=== PATIENT | female | born 1985 | race Caucasian/White ===

== ENCOUNTER 2023-05-28 16:16 | Emergency (ER) | payer MEDICAID ==
[~2023-05-28] VITALS: Ht 175.3 cm; Wt 81.6 kg
[~2023-05-28 16:16] MED LIST: FERR236T3 PO; MULT-1117 PO
[2023-05-28 16:49] VITALS: BP_SYST 115; PULSE 66; RESP 17; TEMP 97.1; O2SAT 97
[2023-05-28 17:40] LABS: BARBITURATE, URINE NEGATIVE (NEG <=200); BENZODIAZEPINE, URINE NEGATIVE (NEG <=150); CANNABINOID, URINE NEGATIVE (NEG <=50); COCAINE, URINE NEGATIVE (NEG <=150); METHAMPHETAMINES SCREEN,URINE NEGATIVE (NEG <=500); OPIATE, URINE NEGATIVE (NEG <=100); PHENCYCLIDINE SCREEN,URINE NEGATIVE (NEG <=25); URINE AMPHETAMINE NEGATIVE (NEG <=500); URINE METHADONE NEGATIVE (NEG <=200); URINE OXYCODONE SCREEN NEGATIVE (NEG <=100)
[2023-05-28 17:41] LABS: UR TRICYCLIC ANTIDEPRESSANTS NEGATIVE (NEG <=300)
[2023-05-28 17:44] LABS: BASOPHILS # (AUTO) 0.1 K/uL (0.0-0.2); BASOPHILS % (AUTO) 1.6 % (0.0-2.0); EOSINOPHILS # (AUTO) 0.2 K/uL (0.0-0.4); EOSINOPHILS % (AUTO) 3.2 % (0.0-4.0); HEMATOCRIT 31.2 % (36-48); HEMOGLOBIN 9.8 g/dL (12.0-16.0); LYMPHOCYTES # (AUTO) 2.1 K/uL (1.0-5.5); LYMPHOCYTES % (AUTO) 31.3 % (20.5-51.5); MEAN CORPUSCULAR HEMOGLOBIN 21 pg (27-31); MEAN CORPUSCULAR HGB CONC 31 % (32-36); MEAN CORPUSCULAR VOLUME 67 fL (79.0-98.0); MONOCYTES # (AUTO) 0.4 K/uL (0.0-1.0); MONOCYTES % (AUTO) 6.2 % (1.7-9.3); NEUTROPHILS % (AUTO) 57.7 % (40.0-70.0); PLATELET COUNT (AUTO) 355 K/uL (130-430); RED BLOOD CELL COUNT(AUTO) 4.67 MIL/uL (4.2-6.2); RED CELL DISTRIBUTION WIDTH 19.3 % (9.0-15.0); WHITE BLOOD COUNT (AUTO) 6.9 K/uL (4.8-10.8)
[2023-05-28 17:53] LABS: SERUM HCG (QUALITATIVE) NEGATIVE (NEGATIVE)
[2023-05-28 17:59] LABS: ANISOCYTOSIS 1+; HYPOCHROMASIA 1+; OVALOCYTES RARE
[2023-05-28 18:07] LABS: ALANINE AMINOTRANSFERASE 25 U/L (12-78); ALBUMIN 3.4 g/dL (3.4-4.8); ASPARTATE AMINOTRANSFERASE 24 U/L (10-37); BILIRUBIN,DIRECT 0.2 mg/dL (0.0-0.3); TOTAL BILIRUBIN 0.6 mg/dL (0.0-1.0); TOTAL PROTEIN, SERUM 8.7 g/dL (6.4-8.3)
[2023-05-28 18:16] LABS: CALCIUM 8.6 mg/dL (8.4-11.0); CREATININE 0.57 mg/dL (0.55-1.30); FREE T4 (FREE THYROXINE) 0.9 ng/dl (0.8-1.5); POTASSIUM 3.6 mmol/L (3.5-5.1); THYROID STIMULATING HORMONE 3.84 uIu/mL (0.36-3.74)
[2023-05-28 18:41] VITALS: BP_SYST 107; PULSE 74; RESP 15; TEMP 98.2; O2SAT 100
== END 2023-05-28 18:40 | disposition home or self-care (01) ==
LOC: SED 16:16
DX: R00.2 Palpitations (principal); I10 Essential (primary) hypertension; E78.5 Hyperlipidemia, unspecified; Z79.899 Other long term (current) drug therapy
CPT/HCPCS: 36415; 71045; 80048; 80076; 80307; 81025; 84439; 84443; 84484; 84703; 85025; 85379; 93005; 99285

== ENCOUNTER 2023-07-26 22:00 | Emergency (ER) | payer MEDICAID ==
[~2023-07-26] VITALS: Ht 175.3 cm; Wt 83.9 kg
[2023-07-26 22:16] VITALS: BP_SYST 131; PULSE 79; RESP 20; TEMP 97.7; O2SAT 100
[2023-07-27 01:31] LABS: BASOPHILS # (AUTO) 0.1 K/uL (0.0-0.2); BASOPHILS % (AUTO) 1.4 % (0.0-2.0); EOSINOPHILS # (AUTO) 0.3 K/uL (0.0-0.4); EOSINOPHILS % (AUTO) 3.4 % (0.0-4.0); HEMATOCRIT 28.9 % (36-48); HEMOGLOBIN 9.2 g/dL (12.0-16.0); LYMPHOCYTES # (AUTO) 2.8 K/uL (1.0-5.5); LYMPHOCYTES % (AUTO) 32.2 % (20.5-51.5); MEAN CORPUSCULAR HEMOGLOBIN 22 pg (27-31); MEAN CORPUSCULAR HGB CONC 32 % (32-36); MEAN CORPUSCULAR VOLUME 68 fL (79.0-98.0); MONOCYTES # (AUTO) 0.7 K/uL (0.0-1.0); MONOCYTES % (AUTO) 8.3 % (1.7-9.3); NEUTROPHILS # (AUTO) 4.7 K/uL (1.8-7.7); NEUTROPHILS % (AUTO) 54.7 % (40.0-70.0); PLATELET COUNT (AUTO) 302 K/uL (130-430); RED BLOOD CELL COUNT(AUTO) 4.27 MIL/uL (4.2-6.2); RED CELL DISTRIBUTION WIDTH 19.3 % (9.0-15.0); WHITE BLOOD COUNT (AUTO) 8.7 K/uL (4.8-10.8)
[2023-07-27 01:58] LABS: BILIRUBIN,URINE NEGATIVE (NEGATIVE); BLOOD, URINE NEGATIVE (NEGATIVE); CLARITY/URINE CLEAR (CLEAR); COLOR,URINE YELLOW (YELLOW); GLUCOSE,URINE NEGATIVE (NEGATIVE); KETONES,URINE NEGATIVE (NEGATIVE); LEUKOCYTE ESTERASE ,URINE NEGATIVE (NEGATIVE); NITRITE, URINE NEGATIVE (NEGATIVE); PROTEIN URINE NEGATIVE (NEGATIVE); UROBILINOGEN,URINE 0.2 (0.2-1.0)
[2023-07-27 02:02] LABS: ANION GAP 11 (5-15); CALCIUM 8.4 mg/dL (8.4-11.0); CARBON DIOXIDE 24 mmol/L (23-29); CHLORIDE 107 mmol/L (98-107); CREATININE 0.46 mg/dL (0.55-1.30); GFR AFRICAN AMERICAN 196 mL/min (>90); GFR NON AFRICAN-AMERICAN 162 mL/min (>90); GLUCOSE 82 mg/dL (74-106); POTASSIUM 3.5 mmol/L (3.5-5.1); SODIUM SERUM 142 mmol/L (136-145); UREA NITROGEN, BLOOD 4 mg/dL (8-21)
[2023-07-27 02:14] LABS: BARBITURATE, URINE NEGATIVE (NEG <=200); BENZODIAZEPINE, URINE NEGATIVE (NEG <=150); CANNABINOID, URINE NEGATIVE (NEG <=50); COCAINE, URINE NEGATIVE (NEG <=150); METHAMPHETAMINES SCREEN,URINE NEGATIVE (NEG <=500); OPIATE, URINE NEGATIVE (NEG <=100); PHENCYCLIDINE SCREEN,URINE NEGATIVE (NEG <=25); URINE AMPHETAMINE NEGATIVE (NEG <=500); URINE METHADONE NEGATIVE (NEG <=200); URINE OXYCODONE SCREEN NEGATIVE (NEG <=100)
[2023-07-27 02:15] LABS: UR TRICYCLIC ANTIDEPRESSANTS NEGATIVE (NEG <=300)
[2023-07-27] MEDS ORDERED: FERR324T22 PO (03:26)
[2023-07-27] MEDS ORDERED: ACET325T53 PO (03:26)
[2023-07-27] MEDS ORDERED: MULT-1117 PO (03:26)
== END 2023-07-27 03:24 | disposition home or self-care (01) ==
LOC: SED 22:00
DX: R00.2 Palpitations (principal); F41.9 Anxiety disorder, unspecified; I10 Essential (primary) hypertension; E78.5 Hyperlipidemia, unspecified; Z88.0 Allergy status to penicillin
CPT/HCPCS: 36415; 80048; 80307; 81001; 81003; 84484; 85025; 93005; 99284